=== PATIENT | female | born 1990 | race Caucasian/White ===

== ENCOUNTER 2016-12-10 09:42 | Inpatient (IN) | payer OTHER ==
[2016-12-10] MEDS ORDERED: LACTATED RINGERS 1,000 ML IV ONE (09:49)
[2016-12-10] MEDS ORDERED: BICITRA PO ONE (10:55)
[2016-12-10] MEDS ORDERED: EMLA TP PRN (10:55)
[2016-12-10] MEDS ORDERED: PEPCID IV ONE (10:55)
[2016-12-10] MEDS ORDERED: REGLAN IV ONE (10:55)
[2016-12-10] MEDS ORDERED: LACTATED RINGERS 1,000 ML IV NR (11:00)
[2016-12-10] MEDS ORDERED: PITOCin/NS 20 UNIT/1000ML DRIP 1,000 ML IV NR (11:00)
[2016-12-10] MEDS ORDERED: ANCEF/STERILE WATER 2 GM/20 ML 20 ML IV NR (11:00)
--- NOTE | 2016-12-10 11:03 | History and Physical Report ---
History of Present Illness Date of examination: 12/10/16 Date of admission: 12/10/16 Chief complaint: uterine contractions, previous c/s x1 Past History Past Medical History: hypertension (hx of PIH previous ), other (gall stones, hx of prolactin disorder- not taking meds) Past Surgical History: section (x1) Family/Genetic History: diabetes, hypertension Social history: no significant social history - Obstetrical History : 2 Medications and Allergies Allergies Allergy/AdvReac Type Severity Reaction Status Date / Time No Known Allergies Allergy Verified 12/10/16 09:47 Home Medications Medication Instructions Recorded Confirmed Last Taken Type Ferrous Sulfate [Feosol] 325 mg PO QDAY 12/10/16 12/10/16 12/09/16 09:00 History 1 Pnv95/Ferrous Fumarate/FA 1 each PO DAILY 12/10/16 12/10/16 12/09/16 09:00 History [Prenavite Tablet] 1 Review of Systems All systems: negative Gastrointestinal: abdominal pain Genitourinary: leakage of fluid - Vital Signs Vital signs: Vital Signs Pulse Pulse Ox 214 H 78 L 12/10/16 10:03 12/10/16 10:03 Temp Pulse Resp BP Pulse Ox 99.0 F 93 H 20 134/86 99 12/10/16 10:06 12/10/16 10:44 12/10/16 10:06 12/10/16 10:05 12/10/16 10:44 - Physical Exam Breasts: Cardiovascular: Regular rate, Normal S1, Normal S2 Abdomen: Positive: normal appearance, soft, normal bowel sounds. Negative: distention, tenderness Vulva: both: normal Vagina: Positive: normal moisture. Negative: discharge Cervix: Negative: lesion, discharge Uterus: Positive: normal size, normal contour Adnexa: both: normal Anus/Rectum: Positive: normal perianal skin, heme negative. Negative: rectal mass, hemorrhoids Extremities: Deep Tendon Reflex Grade: Normal +2 - Obstetrical FHR: category 1 Uterine Contraction Monitor Mode: External Cervical Dilatation: 3 Cervical Effacement Percentage: 80 station: -3 Results All other labs normal. Assessment and Plan iup at term, Labor, previous c/s x1 Plan- prepare for repeat c/s . discussed risks and benefits.
[2016-12-10 11:33] LABS: Basophils % (Auto) 0.4 % (0.0-1.8); Eosinophils % (Auto) 0.3 % (0.0-4.3); Hematocrit 33.6 % (30.3-42.9); Hemoglobin 11.1 gm/dl (10.1-14.3); Mean Corpuscular HGB Conc 33 % (30-34); Mean Corpuscular Hemoglobin 27 pg (28-32); Mean Corpuscular Volume 81 fl (79-97); Platelet Count 337 K/mm3 (140-440); Red Blood Count 4.14 M/mm3 (3.65-5.03); Red Cell Distribution Width 14.1 % (13.2-15.2); White Blood Count 9.7 K/mm3 (4.5-11.0)
[2016-12-10 11:36] LABS: Bilirubin,Urine NEG (Negative); Blood,Urine MOD (Negative); Ketones,Urine TR mg/dL (Negative); Leukocyte Esterase,Urine NEG (Negative); Nitrite,Urine NEG (Negative); Protein,Urine <15 mg/dL mg/dL (Negative); Urobilinogen,Urine < 2.0 mg/dL (<2.0)
[2016-12-10 11:51] LABS: Alanine Aminotransferase 12 units/L (7-56); Lactate Dehydrogenase 187 units/L (91-180); Uric Acid 4.6 mg/dL (3.5-7.6)
--- NOTE | 2016-12-10 11:56 | Anesthesia Day of Surgery ---
Anesthesia Day of Surgery - Day of Surgery Patient Examined: Yes Patient H&P Reviewed: Yes Patient is NPO: Yes
--- NOTE | 2016-12-10 11:56 | Anesthesia Consultation ---
Anesthesia Consult and Med Hx Date of service: 12/10/16 - Airway Anesthetic Teeth Evaluation: Good ROM Head & Neck: Adequate Mental/Hyoid Distance: Adequate Mallampati Class: Class II Intubation Access Assessment: Probably Good - Pre-Operative Health Status ASA Pre-Surgery Classification: ASA2 Proposed Anesthetic Plan: Epidural, Spinal - Pulmonary Hx Asthma: No COPD: No Hx Pneumonia: No - Cardiovascular System Hx Hypertension: No - Central Nervous System Hx Seizures: No Hx Psychiatric Problems: No - Endocrine Hx Renal Disease: No Hx End Stage Renal Disease: No Hx Hypothyroidism: No Hx Hyperthyroidism: No - Hematic Hx Anemia: Yes Hx Sickle Cell Disease: No - Other Systems Hx Obesity: Yes (BMI 39.9)
[2016-12-10] MEDS ORDERED: SODIUM CHLORIDE FLUSH SYRINGE 10 ML IV PRN (12:00)
[2016-12-10] MEDS ORDERED: BENADRYL IV PRN (12:00)
[2016-12-10] MEDS ORDERED: ZOFRAN IV PRN ×2 (12:00→15:48)
[2016-12-10] MEDS ORDERED: DILAUDID IV PRN (12:00)
[2016-12-10] MEDS ORDERED: MORPHINE ONE (12:21)
[2016-12-10] MEDS ORDERED: WATER FOR IRRIG STERILE IR ONE (12:30)
[2016-12-10] MEDS ORDERED: NACL 0.9% IR ONE (12:30)
[2016-12-10] MEDS ORDERED: ANCEF/STERILE WATER 2 GM/20 ML IV ONE (12:35)
[2016-12-10] MEDS ORDERED: ePHEDrine SULFATE ONE (12:37)
[2016-12-10] MEDS ORDERED: NACL 0.9% 1000 ML 1,000 ML ONE (13:01)
--- NOTE | 2016-12-10 13:39 | Procedure Note ---
OB Delivery Note - Delivery Date of Delivery: 12/10/16 Surgeon: REEMA SHEN Estimated blood loss: other (800ml) - Section Preop diagnosis: repeat , other (labor) Postop diagnosis: same section procedure: section, repeat low transverse Disposition: PACU Complications: none - Infant A at 1 minute: 8 at 5 minutes: 9 Gender: Male (8-12, and mother tolerated the procedure well. normal tubes and ovaries)
--- NOTE | 2016-12-10 13:46 | Operative Report ---
Operative Report Operative Report: Preoperative diagnoses- Intrauterine at 37 5/7 days, labor, previous c /s x1 Postoperative diagnoses- same Procedure- Repeat low segment transverse section Surgeon- Dr. Yeny Herrera Anesthesia- Spinal/epidural Findings- live male wt 8-12, apgars 8 & 9, normal tubes and ovaries Estimated blood loss- 800ml Complications- none Instrument count- Correct Pathology specimens- Placenta- discarded Patient was taken to the OR. Spinal/epidural anesthesia was instituted. Patient was then placed in the dorsolithotomy position and Bennett catheter was placed. Patient was then returned to the supine position and prepped and draped in usual sterile fashion. Level of anesthesia was checked and found to be adequate. Pfannenstiel skin incision was made. The incision was extended through the subcutaneous tissues to the fascia. Which was incised transversely using Mayos and pickups with teeth. The fascia was from the underlying muscle using Kochers and Bovie cautery. The rectus muscle was then in the midline. The peritoneum was visualized, grasped with hemostats and opened using the Metzenbaum scissors. Upon entering the peritoneal cavity an edvin retractor was placed appropriately. A curvilinear incision was made with Metzenbaum scissors and a smooth pickup. A bladder flap was developed, a curvilinear incision was made in the lower uterine segment using a scalpel. The uterine cavity was entered bluntly with the surgeon's finger and the incision was enlarged. The Head of the infant was delivered . The mouth and nose were suctioned and the remainder of the body was delivered . The cord was doubly clamped and cut . Infant was given to the waiting team. The cord blood was obtained. The placenta was then delivered manually. The uterus is cleaned with a moist wet lap tape. The first layer of the uterus is closed with 0 Vicryl running interlocking stitch. The second layer of the uterus was closed with a 0 Vicryl horizontal imbricating stitch. The pelvic gutters were cleaned . Next the adnexa were examined and found to be normal. Next the fascia was closed with 0 Vicryl running suture. Next the subcutaneous tissue was reapproximated with 3-0 Vicryl running suture. The skin was reapproximated with a 4-0 Vicryl subcuticular stitch. Mastisol and Steri-Strips were placed . A pressure dressing was applied. The patient was transferred to recovery room in stable condition.
--- NOTE | 2016-12-10 15:10 | Post Anesthesia Evaluation ---
- Post Anesthesia Evaluation Patient Participated: Yes Airway Patent: Yes Stable Respiratory Function: Yes Nausea/Vomiting: No Temp > 96.8F: Yes Pain Manageable: Yes Adequeate Hydration: Yes Anesthesia Complications: No
[2016-12-10] MEDS ORDERED: SODIUM CHLORIDE FLUSH SYRINGE 10 ML IV NR (15:48)
[2016-12-10] MEDS ORDERED: TUCKS PAD TP PRN (15:48)
[2016-12-10] MEDS ORDERED: D5LR 1,000 ML IV SCH (15:48)
[2016-12-10] MEDS ORDERED: MORPHINE IV PRN (15:48)
[2016-12-10] MEDS ORDERED: MOTRIN PO PRN (15:48)
[2016-12-10] MEDS ORDERED: MYLICON PO PRN (15:48)
[2016-12-10] MEDS ORDERED: PITOCin/NS 20 UNIT/1000ML DRIP 1,000 ML IV SCH (15:48)
[2016-12-10] MEDS ORDERED: NARCAN 0.4 MG/1 ML IV PRN (15:48)
[2016-12-10] MEDS ORDERED: LANSINOH TP PRN (15:48)
[2016-12-10] MEDS ORDERED: TORADOL IV PRN (15:48)
[2016-12-10] MEDS ORDERED: MILK OF MAGNESIA PO PRN (15:48)
[2016-12-10] MEDS: ANCEF/NS 1 GM/50 ML 50 ML IV SCH (19:00)
[2016-12-10] MEDS: TORADOL IV PRN (22:55)
[2016-12-11 00:05] LABS: Hematocrit 26.4 % (30.3-42.9); Hemoglobin 8.5 gm/dl (10.1-14.3)
[2016-12-11] MEDS: ANCEF/NS 1 GM/50 ML 50 ML IV SCH (03:05)
[2016-12-11] MEDS: TORADOL IV PRN (05:29)
[2016-12-11] MEDS ORDERED: BOOSTRIX IM ONE (06:05)
--- NOTE | 2016-12-11 06:55 | Progress Note ---
Assessment and Plan POD 1 s/p repeat c/s. start iron for anemia Subjective - Subjective Date of service: 12/11/16 Principal diagnosis: pod1 s/p,repeat c/s, anemia secondary to the blood loss pf surgery Patient reports: appetite normal, voiding normally, pain well controlled [place]: doing well Objective - Vital Signs Latest vital signs: Vital Signs Temp Pulse Pulse Resp BP BP Pulse Ox 12/11/16 05:29 18 12/11/16 04:05 99 F 102 H 20 115/71 12/11/16 00:00 98.9 F 105 H 20 117/78 12/10/16 22:55 18 12/10/16 20:37 98.9 F 96 H 16 133/84 12/10/16 16:05 99.1 F 84 20 130/70 12/10/16 15:10 98.2 F 101 H 20 131/68 12/10/16 14:35 91 H 15 121/83 99 12/10/16 14:20 93 H 23 119/72 12/10/16 14:05 98.1 F 95 H 22 122/66 100 12/10/16 13:50 94 H 20 120/72 100 12/10/16 13:45 91 H 19 110/57 99 12/10/16 13:40 94 H 15 120/72 100 12/10/16 13:35 97.9 F 98 H 16 117/61 100 12/10/16 10:44 93 H 99 12/10/16 10:43 82 97 12/10/16 10:42 107 H 95 12/10/16 10:41 105 H 98 12/10/16 10:40 91 H 97 12/10/16 10:39 115 H 98 12/10/16 10:38 110 H 98 12/10/16 10:37 105 H 97 12/10/16 10:36 112 H 97 12/10/16 10:35 100 H 97 12/10/16 10:34 97 H 97 12/10/16 10:33 123 H 97 12/10/16 10:32 110 H 96 12/10/16 10:31 92 H 98 12/10/16 10:30 117 H 96 12/10/16 10:29 101 H 97 12/10/16 10:28 98 H 96 12/10/16 10:27 112 H 97 12/10/16 10:26 96 H 96 12/10/16 10:25 123 H 97 12/10/16 10:24 110 H 97 12/10/16 10:23 96 H 96 12/10/16 10:22 107 H 97 12/10/16 10:21 94 H 96 12/10/16 10:20 115 H 97 12/10/16 10:19 104 H 97 12/10/16 10:18 115 H 97 12/10/16 10:17 108 H 97 12/10/16 10:16 92 H 97 12/10/16 10:15 127 H 97 12/10/16 10:14 105 H 97 12/10/16 10:13 96 H 95 12/10/16 10:12 115 H 96 12/10/16 10:11 104 H 96 12/10/16 10:10 117 H 97 12/10/16 10:09 98 H 97 12/10/16 10:08 102 H 98 12/10/16 10:07 113 H 97 12/10/16 10:06 99.0 F 97 H 20 97 12/10/16 10:05 112 H 134/86 97 12/10/16 10:04 88 129/95 98 12/10/16 10:03 214 H 78 L Intake and Output 12/10/16 12/10/16 12/11/16 14:59 22:59 06:59 Intake Total 2499 1115 540 Output Total 200 300 400 Balance 2299 815 140 Intake: IV 2499 875 300 PITOCin/NS 20 UNIT/1000ML 500 250 DRIP 1,000 ML @ 125 mls/ hr IV TITR NR Rx#: [id number] PITOCin/NS 20 UNIT/1000ML 325 DRIP 1,000 ML @ 250 mls/ hr IV TITR CAROLINE Rx#: [id number] Ancef/Ns 1 gm/50 ml 50 ml 50 50 @ 100 mls/hr IV Q8H CAROLINE Rx#:[id number] Oral 240 Intake, Free Water 240 Output: Urine 200 300 400 Indwelling Catheter 300 300 Void 100 Other: Total, Intake Amount 240 Total, Output Amount 300 100 Voiding Method Toilet Weight 102.058 kg Estimated Blood Loss 800 Patient Weight 12/11/16 06:59 Weight 102.058 kg - Exam Breasts: Present: deferred Cardiovascular: Present: Regular rate, Normal S1, Normal S2 Lungs: Present: Clear to auscultation Abdomen: Present: normal appearance, soft Vulva: both: normal Uterus: Present: normal, firm Extremities: Present: normal Deep Tendon Reflex Grade: Normal +2 Incision: Present: normal, dry, intact - Labs Labs: Abnormal lab results 12/10/16 12/10/16 12/10/16 Range/Units 10:59 10:59 23:55 Hgb 8.5 L (10.1-14.3) gm/dl Hct 26.4 L D (30.3-42.9) % MCH 27 L (28-32) pg Seg Neutrophils % 73.1 H (40.0-70.0) % Creatinine 0.4 L (0.7-1.2) mg/dL Lactate Dehydrogenase 187 H (91-180) units/L
[2016-12-11] MEDS ORDERED: FLUARIX QUAD 2016-2017(36 MOS+) IM ONE (12:00)
--- NOTE | 2016-12-11 13:23 | Progress Note ---
Subjective Date of service: 12/11/16 Principal diagnosis: pod1 s/p,repeat c/s, anemia secondary to the blood loss pf surgery Interval history: 1st POD after Patient is in the bed, comfortable. Pain is well controlled with pain meds. Ambulated well. No residual neurological deficit. No anesthesia complications Objective - Constitutional Vitals: Vital Signs - 12hr 12/11/16 12/11/16 12/11/16 04:05 05:29 08:18 Temperature 99 F 98.9 F Pulse Rate [ 100 H From Monitor] Pulse Rate [ 102 H Right Radial] Respiratory 20 18 22 Rate Blood Pressure 115/71 135/78 [Right Arm] - Labs CBC & Chem 7: 12/10/16 23:55 12/10/16 10:59 Labs: Abnormal lab results 12/10/16 Range/Units 23:55 Hgb 8.5 L (10.1-14.3) gm/dl Hct 26.4 L D (30.3-42.9) %
[2016-12-11] MEDS: FEOSOL PO SCH (14:01)
[2016-12-11] MEDS: PERCOCET 5/325 PO PRN (16:22)
[2016-12-12] MEDS: PERCOCET 5/325 PO PRN ×2 (00:32→07:53)
[2016-12-12] MEDS: FEOSOL PO SCH ×2 (00:34→09:14)
--- NOTE | 2016-12-12 10:56 | Progress Note ---
Assessment and Plan A: POD#2 s/p repeat section,asymptomatic anemia- patient requesting hospital discharge P: Discharge patient home later this afternoon with follow up in 2 weeks for incision check. Subjective - Subjective Date of service: 12/12/16 Principal diagnosis: pod 2 s/p,repeat c/s, anemia secondary to the blood loss pf surgery Interval history: Patient feels well and is requesting hospital discharge. She is emulating, voiding, tolerating regular diet without nausea, and has passed flatus. She has not yet had a bowel movement. Patient reports: appetite normal, voiding normally, pain well controlled, flatus , ambulating normally, no dizzy ambulation, no bowel movement, no nauseated [place]: doing well Objective - Vital Signs Latest vital signs: Vital Signs Temp Pulse Pulse Resp BP 12/12/16 08:05 97.7 F 72 18 118/72 12/12/16 07:53 18 12/11/16 23:15 98.8 F 94 H 18 134/79 12/11/16 17:44 99.2 F 76 20 112/69 12/11/16 16:22 20 Intake and Output 12/11/16 12/12/16 12/12/16 22:59 06:59 14:59 Intake Total 360 360 120 Output Total 300 Balance 60 360 120 Intake: Oral 360 120 Intake, Free Water 360 Output: Urine 300 Void 300 Other: Total, Intake Amount 360 120 Total, Output Amount 300 # Voids Void 1 1 - Exam Breasts: Present: deferred Cardiovascular: Present: Regular rate Lungs: Present: Clear to auscultation Abdomen: Present: soft (obese ), normal bowel sounds. Absent: distention Extremities: Present: normal Incision: Present: intact
--- NOTE | 2016-12-12 10:58 | Discharge Summary ---
Providers - Providers Date of Admission: 12/10/16 11:24 Date of discharge: 12/12/16 Attending physician: REEMA SHEN Primary care physician: REEMA SHEN Hospitalization Reason for admission: active labor Delivery: Procedure: section, repeat low transverse Procedure details: Please see operative note. Incision: intact Other procedures: none complications: none Discharge diagnosis: IUP at term delivered [place] baby: male Hospital course: Patient underwent repeat section which she tolerated well. Her course was uncomplicated and she met discharge criteria on postoperative day #3 Condition at discharge: Stable Disposition: DISCHARGED TO HOME OR SELFCARE - Discharge Diagnoses (1) Term of male Status: Acute (2) Obesity (BMI 35.0-39.9 without comorbidity) Status: Acute (3) S/P section Status: Acute (4) Acute blood loss anemia Status: Acute Plan - Discharge Medications Prescriptions: Ferrous Sulfate [Feosol 325 MG tab] 325 mg PO BID #60 tablet Ibuprofen [Motrin 800 MG tab] 800 mg PO Q8HR PRN #30 tablet PRN Reason: Pain oxyCODONE /ACETAMINOPHEN [Percocet 5/325] 1 tab PO Q6HR PRN #30 tablet PRN Reason: Pain - Provider Discharge Summary Activity: routine, no sex for 6 weeks, no heavy lifting 4 weeks, no strenuous exercise Diet: routine Instructions: routine Additional instructions: [] Smoking cessation referral if applicable(refer to patient education folder for contact #) [] Refer to [facility]'s [facility] Booklet Call your doctor immediately for: * Fever > 100.5 * Heavy vaginal bleeding ( >1 pad per hour) * Severe persistent headache * Shortness of breath * Reddened, hot, painful area to leg or breast * Drainage or odor from incision. * Keep incision clean and dry at all times and follow doctor's instructions regarding bathing/showering - Follow up plan Follow up: REEMA SHEN MD [Primary Care Provider] - 12/24/16 (incision check )
[2016-12-12] MEDS ORDERED: MILK OF MAGNESIA PO SCH (11:00)
[2016-12-12 14:38] VITALS: BP 124/70
== END 2016-12-12 15:00 | disposition home or self-care (01) | DRG 765 ==
LOC: TRG 09:42 → LD 11:24 → APU 14:20 → OB 15:24
PROVIDERS: ADMIT Specialist; ATTEND Specialist
PROC: 10D00Z1 Extraction of Products of Conception, Low, Open Approach (ICD-10-PCS; principal; 2016-12-10)
DX: O99.214 Obesity complicating childbirth (principal); O90.81 Anemia of the puerperium; D62 Acute posthemorrhagic anemia; O34.211 Maternal care for low transverse scar from previous cesarean delivery; O16.4 Unspecified maternal hypertension, complicating childbirth; Z3A.37 37 weeks gestation of pregnancy; Z37.0 Single live birth; Z83.3 Family history of diabetes mellitus; Z82.49 Family history of ischemic heart disease and other diseases of the circulatory system; Z68.39 Body mass index [BMI] 39.0-39.9, adult
CPT/HCPCS: 36415; 81001; 82565; 83615; 84450; 84460; 84550; 85014; 85018; 85025; 86850; 86900; 86901; 90471; 90686; 90715; 99211; A6250; G0008; G0463; J0690; J1885; J2270; J2590; J2765; J7030; J7120